=== PATIENT | female | born 1955 | race Caucasian/White ===

== ENCOUNTER 2018-11-13 18:25 | Emergency (ER) | payer OTHER ==
[~2018-11-13] VITALS: Ht 162.6 cm; Wt 49.9 kg
[~2018-11-13 18:25] MED LIST: ALBU3IS INH; ALBU90OI INH; ASPI325EC PO; BACL10 PO; BELPTAB PO; CARI350; CEPH500 PO; CIME300; CIPRO500 MG PO; CODGUAEL PO; CYCL10; CYCL10 PO; CYMBALTA; DETROL PO; DULERA 200 MCG/13 GM; DULERA 200 MCG/13 GM INH; DULO30 PO; DULO60; Diclofenac Sodi50 MG PO; ESCI5; ESTR2 PO; ESTRADIOL1 MG PO; Estradiol1 MG PO; FLUV80CR; GABA300 PO; GABAPENTIN; HYDACE5; HYDACE5 PO; HYOS0.375T; Hydrocodone-Ap1 EA23 PO; IBUP600 PO; Keflex500 MG PO; LANS30EC; MELO7.5 PO; METPRE4DP PO; NAPR500 PO; Norco 10-325 T1 EACH PO; Norco 5-325 Ta1 EACH PO; OMEP20ER PO; OMEPRAZOLE; ONDA8ODT MM; OXYACE5T; OXYB5 PO; OXYC15ER PO; OXYC1TAB11; OXYC30 PO; OXYC5; PANT40 PO; PRAV20 PO; PREG150 PO; PREG50 PO; Percocet 5-3251 EACH PO; Prednisone20 MG PO; Pyridium200 MG PO; Robaxin500 MG PO; SULTRISS PO; TRAACE; Zofran Odt8 MG SL
[2018-11-13] MEDS ORDERED: TRAM50 PO (19:54)
== END 2018-11-13 20:19 | disposition home or self-care (01) ==
LOC: ER 18:25
DX: S43.401A Unspecified sprain of right shoulder joint, initial encounter (principal); Y04.8XXA Assault by other bodily force, initial encounter; Z79.899 Other long term (current) drug therapy; Z88.8 Allergy status to other drugs, medicaments and biological substances; I10 Essential (primary) hypertension; F17.210 Nicotine dependence, cigarettes, uncomplicated
CPT/HCPCS: 73030; 90471; 90714; 96372; 99283-25; J1885